=== PATIENT | male | born 1995 | race Hispanic/Latino ===

== ENCOUNTER 2020-08-22 02:08 | Emergency (ER) | payer OTHER ==
[2020-08-22] MEDS ORDERED: ONDANSETRON ODT 4MG TAB ONE (03:08)
[2020-08-22] MEDS ORDERED: HYOSCYAMINE SULFATE 0.125 MG TAB.SUBL SL ONE (04:01)
== END 2020-08-22 04:07 | disposition home or self-care (01) ==
LOC: EDH 02:08
DX: R19.7 Diarrhea, unspecified (principal); R11.2 Nausea with vomiting, unspecified; R10.9 Unspecified abdominal pain; Z20.822 Contact with and (suspected) exposure to COVID-19
CPT/HCPCS: 87426; 99283; U0003